=== PATIENT | male | born 1975 | race African-American/Black ===

== ENCOUNTER 2016-11-20 13:19 | Emergency (ER) | payer OTHER ==
[2016-11-20] MEDS ORDERED: Adacel (T-DAP) 0.5 ML VIAL ONE (14:09)
[2016-11-20] MEDS ORDERED: Sodium Chloride 0.9% 1,000 ML ONE ×2 (14:09→14:11)
--- NOTE | 2016-11-20 15:14 | ERRECORD ---
[facility] EMERGENCY RECORD HPI FOOT (14:34 JOHE) CHIEF COMPLAINT: Patient presents for evaluation of pain, to the right foot. HISTORIAN: History provided by patient, Patient reports 2 weeks of right foot pain, with a sore on the right foot over that time period. Reports swelling of the foot worse several days ago, with drainage of pus. Patient told nursing he had a razorblade wound on the foot two months ago, but did not report any injuries to me when asked. Reports subjective fever several days ago. No N&V, new numbness/tingling/weakness or other symptoms. Patient does report he drank two beers three hours ago. MECHANISM OF INJURY: Unknown mechanism. LOCATION: Symptoms are localized, most severe in the fifth metatarsal, Radiation is not present. QUALITY: Pain is sharp in nature, described as stabbing. SEVERITY: Maximum severity of symptoms severe, Currently symptoms are severe. TIME COURSE: Patient unable to describe onset of symptoms, There has been no change in the patient's symptoms over time, are constant. ASSOCIATED WITH: Associated with alcohol use, No associated ankle pain, No associated coolness to touch, No associated distal injury, No associated distal neuro complaint, No associated erythema, Associated with fever, No associated hip pain, No associated inability to ambulate, No associated inability to bear weight, No associated knee pain, Associated with open wounds, Associated with pain on walking, Pain is not out of proportion, No associated proximal injury, No associated tingling, No associated warmth, No associated weakness distal to injury, Denies any other complaints. EXACERBATED BY: Patient's condition exacerbated by walking, Patient's condition exacerbated by bearing weight. RELIEVED BY: Patient's condition relieved by rest. ROS (14:39 JOHE) CONSTITUTIONAL: Historian denies chills, denies fatigue, reports fever. Subjective fever of yes, Historian denies malaise. EYES: Historian denies eye pain, denies vision changes. ENT: Historian denies otalgia, denies rhinorrhea, denies sore throat. CARDIOVASCULAR: Historian denies chest pain, denies diaphoresis, denies syncope, denies palpitations. RESPIRATORY: Historian denies cough, denies shortness of breath. GI: Historian denies abdominal pain, denies nausea, denies vomiting. MUSCULOSKELETAL: Historian denies arthralgias, denies joint redness, denies joint stiffness, denies joint swelling, denies myalgias. SKIN: Historian denies rash, reports skin lesions. NEUROLOGIC: Historian denies dizziness, denies focal weakness, &a-1R&a+25V*p+0X*m2184H*c202B*c15G*c2P*p-0X&a-25V&a+1R Name: Dinesh Durham : 1975 [facility] MedRec: [id number] AcctNum: [id number] Prepared: WedNov 20, 2016 15:08 by Interface Page 1 of 4 pMD [facility] EMERGENCY RECORD denies gait changes, denies headache, denies paralysis, denies paresthesias, denies seizures. HEMO/LYMPHATIC: Historian denies abnormal blood clotting, denies petechiae. PSYCHIATRIC: Historian denies alcohol abuse, denies drug abuse, denies hallucinations, denies homicidal ideation, denies mood changes, denies suicidal ideation. NOTES: All systems reviewed, negative except as described above. PAST MEDICAL HISTORY (13:42 [facility]) MEDICAL HISTORY: Past medical history includes history of malignancy, primary site prostate, treated with chemotherapy, treated with radiation. MALE SURGICAL HISTORY: PROSTATE REMOVED OCT 2015 VERIFIED 03/28/16. PSYCHIATRIC HISTORY: No previous psychiatric history. SOCIAL HISTORY: Patient drinks every day, more than 5 drinks per day, Patient denies drug use, Patient currently uses tobacco, smokes cigarettes, daily, Patient has smoked for 30 years, Patient smokes 1 pack per day, Patient drinks socially, every week, Patient denies drug use, Patient currently uses tobacco, smokes cigarettes, daily, Patient smokes 1 pack per day. VERIFIED 03/28/16. KNOWN ALLERGIES No Known Drug Allergies CURRENT MEDICATIONS (13:42 [facility]) None VITAL SIGNS (13:39 [facility]) VITAL SIGNS: BP: 130/77, Pulse: 96, Resp: 16, Temp: 98.5 (Oral), Pain: 10, O2 sat: 95 on Room Air, Time: 11/20/2016 13:39. PHYSICAL EXAM CONSTITUTIONAL: Vital Signs Reviewed, Patient appears non toxic, Patient alert and oriented to person, place and time, Patient sleeping but arousable. Does have faint odor of alcohol in room. AAO X3. (14:42 JOHE) HEAD: Head exam normal, Head exam included findings of head atraumatic, normocephalic. (14:42 JOHE) EYES: Eye exam normal, Eye exam included findings of eyelids normal to inspection, Pupils equally round and reactive to light, Left pupil 2 mm in size, Right pupil 2 mm in size, Extraocular muscles intact, mild bilateral conjunctival injection. (14:42 JOHE) ENT: ENT exam normal, Pharynx exam normal, not injected, no swelling, symmetrical, Uvula exam normal, midline, no edema, Mouth exam normal, mucous membranes moist, no drooling, no lesions, no lacerations, no tongue elevation. (14:42 JOHE) &a-1R&a+25V*p+0X*l2171X*c202B*c15G*c2P*p-0X&a-25V&a+1R Name: Dinesh Durham : 1975 M40 MedRec: [id number] AcctNum: [id number] Prepared: WedNov 20, 2016 15:08 by Interface Page 2 of 4 pMD [facility] EMERGENCY RECORD NECK: Neck exam normal, Neck exam included findings of normal range of motion, Trachea midline, no abrasions, no contusions, no ecchymosis. (14:42 JOHE) RESPIRATORY CHEST: Respiratory and chest exam normal, Respiratory exam included findings of no respiratory distress, Breath sounds clear, No wheezing, No rales, No rhonchi, Breath sounds not absent, Breath sounds not diminished, CTAB. (14:42 JOHE) CARDIOVASCULAR: Cardiovascular assessment normal, Cardiovascular exam included findings of heart rate regular rate and rhythm, Heart sounds normal, Pedal pulses normal, RRR, no R/M/G. + pulses all ext., no edema. (14:42 JOHE) ABDOMEN MALE: Abdominal exam normal, Abdominal exam included findings of abdomen nontender, Bowel sounds normal, Soft, NT, ND, + BS. (14:42 JOHE) BACK: Back exam normal, Back exam included findings of normal inspection, range of motion normal. (14:42 JOHE) UPPER EXTREMITY: Upper extremity exam normal, Upper extremity exam included findings of inspection normal, Range of motion normal, Motor strength normal, Sensation intact, Radial pulse normal. (14:42 JOHE) LOWER EXTREMITY: Foot tendon function normal, Patient has a healing, approximately 1cm ulceration/wound on the dorsum of the right foot near the fifth MTP joint, with tenderness to palpation, but no erythema, warmth, swelling, or fluctuance. No purulent drainage. Patient has some maceration of the web space of the 4-5th toes, without erythema or drainage. There is no other tenderness or swelling of the foot or ankle (I do not see significant ankle swelling on my exam). Remainder BLE nontender with full and painless ROM. Sensation intact light touch BLE, cap refill < 2 sec, normal DP and PT pulses BLE. Normal gait in ED., Patient is able to walk at least 4 steps. (14:55 JOHE) NEURO: Neuro exam normal, Neuro exam findings include patient oriented to person, place and time, Gait normal, Cranial nerves intact, no focal motor deficits, no focal sensory deficits. (14:42 JOHE) SKIN: Skin exam included findings of skin warm, dry, and normal in color. (14:42 JOHE) RADIOLOGYINTERPRETATION (15:03 JOHE) LOWER EXTREMITIES: Foot films negative, on the right, no fracture, no dislocation, no foreign body, no bony lesion. FINE CRAFT ARTIST: Preliminary review of x-rays by, ED Physician, Radiologist. MEDICATION ADMINISTRATION SUMMARY Drug Name: Motrin, Dose Ordered: 600 mg, Route: Oral, Status: Ordered, Time: 14:11 11/20/2016, Drug Name: Normal Saline, Dose Ordered: 1000 mL, Route: IV Fluid Infusion, Status: Ordered, Time: 14:02 11/20/2016, &a-1R&a+25V*p+0X*[id number]*c202B*c15G*c2P*p-0X&a-25V&a+1R Name: Rosamond Dinesh Callie : 1975 M40 MedRec: [id number] AcctNum: [id number] Prepared: WedNov 20, 2016 15:08 by Interface Page 3 of 4 pMD [facility] EMERGENCY RECORD Drug Name: Adacel(Tdap Adolesn/Adult)(PF), Dose Ordered: 0.5 mL, Route: Intramuscular, Status: Given, Time: 14:17 11/20/2016, Detailed record available in Medication Service section. DOCTOR NOTES (15: [facility]) TEXT: Patient refuses labs and further evaluation. Discussed with patient that cannot rule out deeper infection given complaint of fever and drainage, and need labs, and further evaluation. Patient verbalized understanding of the risks of leaving, including or disability, and still wishes to leave. AMA form signed, and as patient awake, alert, and oriented, will d/c home with family member to monitor him. Discussed need to return to ED if he changes his mind or develops further symptoms, and need for outpatient f/u. DATA REVIEWED: Xray data reviewed. PROBLEM LIST No recorded problems DIAGNOSIS (15: [facility]) FINAL: PRIMARY: ulceration of right foot. PRESCRIPTION No recorded prescriptions DISPOSITION PATIENT: Disposition Type: Eloped, Disposition: Against Medical Advice, Disposition Transport: Designated Watch Assembly Instructor, Condition: Good. (15: [facility]) Patient left the department. (15:03 [facility]) Song: POP=MD Kym, Rod [facility]=LIZZIE Ferraro, Angelic &a-1R&a+25V*p+0X*[id number]*c202B*c15G*c2P*p-0X&a-25V&a+1R Name: Dinesh Durham : 1975 M40 MedRec: [id number] AcctNum: [id number] Prepared: WedNov 20, 2016 15:08 by Interface Page 4 of 4 pMD MTDD
--- NOTE | 2016-11-20 15:14 | RAD ---
THREE VIEWS OF THE RIGHT FOOT: Date: 11/20/16. COMPARISON: None. HISTORY: Open wound on the right foot, fever. FINDINGS: There is mild degenerative change at the first metatarsal phalangeal joint which includes joint spac e narrowing, subchondral sclerosis, and osteophyte formation. There is no displaced fracture or jacob dence of dislocation seen. No radiopaque foreign body or subcutaneous gas. IMPRESSION: No acute osseous abnormality. If there is clinical concern for osteomyelitis, MRI of the right foot suggested. POS: JOSSELINE
--- NOTE | 2016-11-20 15:17 | PICIS ---
[facility] EMERGENCY RECORD TRIAGE (13:40 [facility]) TRIAGE NOTES: Pt reports scraping on an open wound on his R foot with a razorblade 2 months ago, and says he thinks his foot may be infected now. Pt's ankle is swollen and pt is limping. Pt's speech is slurred and he smells of alcohol. (13:40 [facility]) PATIENT: NAME: Dinesh Durham, AGE: 40, GENDER: male, : Wed1975, TIME OF GREET: WedNov 20, 2016 13:19, PREFERRED LANGUAGE: Ukrainian, ETHNICITY: Not or , ECODE BILLING MAP: [facility], SSN: [id number], Zip Code: [address], KG WEIGHT: [phone] (est.), PHONE: , , , PERSON ID: [id number]. (13:40 [facility]) COMPLAINT: RIGHT FOOT PAIN. (13:40 [facility]) ADMISSION: URGENCY: 4 Non Urgent, ADMISSION SOURCE: Home, TRANSPORT: Walk-in, BED: ER -05. (13:40 [facility]) IMMUNIZATIONS: Flu vaccine not up to date, Tetanus not up to date. (13:42 [facility]) SIRS SCORING: Heart Rate 55-109 (0), Temp range 96.8-101.1 (0), respiratory rate 12-24 (0). (13:42 [facility]) TRIAGE SCREENING: Patient denies suicidal ideation, Patient denies presence of domestic violence. (13:42 [facility]) PROVIDERS: TRIAGE NURSE: Angelic Ferraro RN. (13:40 [facility]) VITAL SIGNS: BP 130/77, Pulse 96, Resp 16, Temp 98.5, (Oral), Pain 10, O2 Sat 95, on Room Air, Time 11/20/2016 13:39. (13:39 [facility]) KNOWN ALLERGIES No Known Drug Allergies CURRENT MEDICATIONS (13:42 [facility]) None VITAL SIGNS (13:39 [facility]) VITAL SIGNS: BP: 130/77, Pulse: 96, Resp: 16, Temp: 98.5 (Oral), Pain: 10, O2 sat: 95 on Room Air, Time: 11/20/2016 13:39. NURSING ASSESSMENT: EXTREMITY LOWER (13:43 [facility]) CONSTITUTIONAL: Complex assessment performed, Patient arrives ambulatory, Unsteady gait, History obtained from patient, Patient appears comfortable, Patient cooperative, Patient alert, Oriented to person, place and time, Skin warm, Skin dry, Skin normal in color, Pt reports R foot pain causing him to limp and not be able to bear weight on that side beginning a few days ago. Pt reports scraping at a foot wound with a razor blade 2 months ago and now believes his foot is infected. Wound has closed, no signs of current infection. PAIN: shooting pain, to the right foot, on a scale 0-10 patient rates pain as 10. LEFT LOWER EXTREMITY: Left lower extremity assessment findings include capillary refill less than 2 seconds, Skin color normal, Skin temperature warm, Distal sensation intact, Muscle tone normal, muscle &a-1R&a+25V*p+0X*x7500N*c202B*c15G*c2P*p-0X&a-25V&a+1R Name: Dinesh Durham : 1975 1 MedRec: [id number] AcctNum: [id number] Prepared: WedNov 20, 2016 15:15 by Interface Page 1 of 7 pMD [facility] EMERGENCY RECORD strength 5, no edema present, dorsalis pedis pulse is +3. RIGHT LOWER EXTREMITY: Right lower extremity assessment findings include capillary refill less than 2 seconds, Skin color normal, Skin temperature warm, Distal sensation intact, Muscle tone normal, muscle strength 5, no edema present, dorsalis pedis pulse is +3, Inspection findings include signs of infection, to R dorsal surface near fourth and fifth toes, signs of old wound which pt reports "scraping at with a razor.". SAFETY: Side rails up, Cart/Stretcher in lowest position, Call light within reach, Hospital ID band on. NURSING PROCEDURE: BEDSIDE RADIOLOGY (14:06 [facility]) BEDSIDE RADIOLOGY: Bedside radiology performed by [facility], Portable x-ray performed, of the right foot. NURSING PROCEDURE: NURSE NOTES NURSES NOTES: Notes: Pt refusing IV stick and medications; wants to leave AMA, but is unable to find a ride. Sister (emergency contact) works in town but is unable to pick pt up until closer to 1700. ERMD aware and has said we will continue to observe him for another hour and then he is free to be discharged AMA. Will continue to monitor. (14:42 [facility]) Notes: Pt's family member has come to pick pt up and signed his AMA form. Pt has expressed consent to leave with family member and ERMD aware. (15:02 [facility]) ORDER DETAILS Order Name: Alcohol, Status: Canceled, Time: 14:07 11/20/2016, User: POP, - Ordered for: MD Mejía John, - Entered by: MD Mejía John - WedNov 20, 2016 14:03, - Quantity: 1, Order Name: CBC with Differential, Status: Active, Time: 14:01 11/20/2016, User: POP, - Ordered for: MD Mejía John, - Entered by: MD Mejía John - WedNov 20, 2016 14:01, - Quantity: 1, Order Name: Comprehensive Metabolic Panel, Status: Active, Time: 14:01 11/20/2016, User: POP, - Ordered for: MD Mejía John, - Entered by: MD Mejía John - WedNov 20, 2016 14:01, - Quantity: 1, Order Name: Drug Screen, Urine, Status: Canceled, Time: 14:06 11/20/2016, User: POP, - Ordered for: MD Mejía John, - Entered by: MD Mejía John - WedNov 20, 2016 14:03, - Quantity: 1, Order Name: RBC Sedimentation Rate (ESR), Status: Active, Time: 14:01 11/20/2016, User: POP, &a-1R&a+25V*p+0X*b7723L*c202B*c15G*c2P*p-0X&a-25V&a+1R Name: Herminio Dinesh G : 1975 M40 MedRec: [id number] AcctNum: [id number] Prepared: WedNov 20, 2016 15:15 [address] Interface [address] [facility] EMERGENCY RECORD - Ordered for: MD Mejía John, - Entered by: MD Mejía John - WedNov 20, 2016 14:01, - Quantity: 1, Order Name: XR Foot Rt 3 View STANDARD, Status: Active, Time: 14:00 11/20/2016, User: POP, - Ordered for: MD Mejía John, - Entered by: MD Mejía John - WedNov 20, 2016 14:00, - Quantity: 1. MEDICATION ADMINISTRATION SUMMARY Drug Name: Motrin, Dose Ordered: 600 mg, Route: Oral, Status: Ordered, Time: 14:11 11/20/2016, Drug Name: Normal Saline, Dose Ordered: 1000 mL, Route: IV Fluid Infusion, Status: Ordered, Time: 14:02 11/20/2016, Drug Name: Adacel(Tdap Adolesn/Adult)(PF), Dose Ordered: 0.5 mL, Route: Intramuscular, Status: Given, Time: 14:17 11/20/2016, Detailed record available in Medication Service section. MEDICATION SERVICE Adacel(Tdap Adolesn/Adult)(PF): Order: Adacel(Tdap Adolesn/Adult)(PF) (diphth,pertuss(acell),tet vac/preservative free) - Dose: 0.5 mL : Intramuscular Schedule: Now Ordered by: Rod Mejía MD Entered by: Rod Mejía MD WedNov 20, 2016 14:03 , Acknowledged by: Angelic Ferraro RN WedNov 20, 2016 14:04 Documented as given by: Angelic Ferraro RN WedNov 20, 2016 14:17 Patient, Medication, Dose, Route and Time verified prior to administration. IM immunization, Amount given: 0.5 ml, Medication administered to right deltoid, Vaccination information sheet given to patient, Correct patient, time, route, dose and medication confirmed prior to administration, Patient advised of actions and side-effects prior to administration, Allergies confirmed and medications reviewed prior to administration, Patient tolerated procedure well, Administered by LIZZIE Atwood, Patient in position of comfort, Side rails up, Cart in lowest position, Call light in reach. Motrin: Order: Motrin (ibuprofen) - Dose: 600 mg : Oral Schedule: Now Ordered by: Rod Mejía MD Entered by: Rod Mejía MD WedNov 20, 2016 14:11 , Acknowledged by: Angelic Ferraro RN WedNov 20, 2016 14:49. Normal Saline: Order: Normal Saline (0.9 % sodium chloride) - Dose: 1000 mL : IV Fluid Infusion Schedule: Now Ordered by: Rod Mejía MD Entered by: Rod Mejía MD WedNov 20, 2016 14:02 , Acknowledged by: Angelic Ferraro RN WedNov 20, 2016 14:04. &a-1R&a+25V*p+0X*p4347R*c202B*c15G*c2P*p-0X&a-25V&a+1R Name: Dinesh Durham : 1975 M40 MedRec: [id number] AcctNum: [id number] Prepared: WedNov 20, 2016 15:15 by Interface Page 3 of 7 pMD [facility] EMERGENCY RECORD HPI FOOT (14:34 [facility]) CHIEF COMPLAINT: Patient presents for evaluation of pain, to the right foot. HISTORIAN: History provided by patient, Patient reports 2 weeks of right foot pain, with a sore on the right foot over that time period. Reports swelling of the foot worse several days ago, with drainage of pus. Patient told nursing he had a razorblade wound on the foot two months ago, but did not report any injuries to me when asked. Reports subjective fever several days ago. No N&V, new numbness/tingling/weakness or other symptoms. Patient does report he drank two beers three hours ago. MECHANISM OF INJURY: Unknown mechanism. LOCATION: Symptoms are localized, most severe in the fifth metatarsal, Radiation is not present. QUALITY: Pain is sharp in nature, described as stabbing. SEVERITY: Maximum severity of symptoms severe, Currently symptoms are severe. TIME COURSE: Patient unable to describe onset of symptoms, There has been no change in the patient's symptoms over time, are constant. ASSOCIATED WITH: Associated with alcohol use, No associated ankle pain, No associated coolness to touch, No associated distal injury, No associated distal neuro complaint, No associated erythema, Associated with fever, No associated hip pain, No associated inability to ambulate, No associated inability to bear weight, No associated knee pain, Associated with open wounds, Associated with pain on walking, Pain is not out of proportion, No associated proximal injury, No associated tingling, No associated warmth, No associated weakness distal to injury, Denies any other complaints. EXACERBATED BY: Patient's condition exacerbated by walking, Patient's condition exacerbated by bearing weight. RELIEVED BY: Patient's condition relieved by rest. ROS (14:39 [facility]) CONSTITUTIONAL: Historian denies chills, denies fatigue, reports fever. Subjective fever of yes, Historian denies malaise. EYES: Historian denies eye pain, denies vision changes. ENT: Historian denies otalgia, denies rhinorrhea, denies sore throat. CARDIOVASCULAR: Historian denies chest pain, denies diaphoresis, denies syncope, denies palpitations. RESPIRATORY: Historian denies cough, denies shortness of breath. GI: Historian denies abdominal pain, denies nausea, denies vomiting. MUSCULOSKELETAL: Historian denies arthralgias, denies joint redness, denies joint stiffness, denies joint swelling, denies myalgias. SKIN: Historian denies rash, reports skin lesions. &a-1R&a+25V*p+0X*x6631Z*c202B*c15G*c2P*p-0X&a-25V&a+1R Name: Dinesh Durham : 1975 M40 MedRec: [id number] AcctNum: [id number] Prepared: WedNov 20, 2016 15:15 by Interface Page 4 of 7 pMD [facility] EMERGENCY RECORD NEUROLOGIC: Historian denies dizziness, denies focal weakness, denies gait changes, denies headache, denies paralysis, denies paresthesias, denies seizures. HEMO/LYMPHATIC: Historian denies abnormal blood clotting, denies petechiae. PSYCHIATRIC: Historian denies alcohol abuse, denies drug abuse, denies hallucinations, denies homicidal ideation, denies mood changes, denies suicidal ideation. NOTES: All systems reviewed, negative except as described above. PAST MEDICAL HISTORY (13:42 [facility]) MEDICAL HISTORY: Past medical history includes history of malignancy, primary site prostate, treated with chemotherapy, treated with radiation. MALE SURGICAL HISTORY: PROSTATE REMOVED OCT 2015 VERIFIED 03/28/16. PSYCHIATRIC HISTORY: No previous psychiatric history. SOCIAL HISTORY: Patient drinks every day, more than 5 drinks per day, Patient denies drug use, Patient currently uses tobacco, smokes cigarettes, daily, Patient has smoked for 30 years, Patient smokes 1 pack per day, Patient drinks socially, every week, Patient denies drug use, Patient currently uses tobacco, smokes cigarettes, daily, Patient smokes 1 pack per day. VERIFIED 03/28/16. PHYSICAL EXAM CONSTITUTIONAL: Vital Signs Reviewed, Patient appears non toxic, Patient alert and oriented to person, place and time, Patient sleeping but arousable. Does have faint odor of alcohol in room. AAO X3. (14:42 [facility]) HEAD: Head exam normal, Head exam included findings of head atraumatic, normocephalic. (14:42 [facility]) EYES: Eye exam normal, Eye exam included findings of eyelids normal to inspection, Pupils equally round and reactive to light, Left pupil 2 mm in size, Right pupil 2 mm in size, Extraocular muscles intact, mild bilateral conjunctival injection. (14:42 [facility]) ENT: ENT exam normal, Pharynx exam normal, not injected, no swelling, symmetrical, Uvula exam normal, midline, no edema, Mouth exam normal, mucous membranes moist, no drooling, no lesions, no lacerations, no tongue elevation. (14:42 [facility]) NECK: Neck exam normal, Neck exam included findings of normal range of motion, Trachea midline, no abrasions, no contusions, no ecchymosis. (14:42 [facility]) RESPIRATORY CHEST: Respiratory and chest exam normal, Respiratory exam included findings of no respiratory distress, Breath sounds clear, No wheezing, No rales, No rhonchi, Breath sounds not absent, Breath sounds not diminished, CTAB. (14:42 [facility]) CARDIOVASCULAR: Cardiovascular assessment normal, Cardiovascular exam included findings of heart rate regular rate and rhythm, Heart &a-1R&a+25V*p+0X*x8754M*c202B*c15G*c2P*p-0X&a-25V&a+1R Name: Dinesh Durham : 1975 M40 MedRec: [id number] AcctNum: [id number] Prepared: WedNov 20, 2016 15:15 by Interface Page 5 of 7 pMD [facility] EMERGENCY RECORD sounds normal, Pedal pulses normal, RRR, no R/M/G. + pulses all ext., no edema. (14:42 [facility]) ABDOMEN MALE: Abdominal exam normal, Abdominal exam included findings of abdomen nontender, Bowel sounds normal, Soft, NT, ND, + BS. (14:42 [facility]) BACK: Back exam normal, Back exam included findings of normal inspection, range of motion normal. (14:42 [facility]) UPPER EXTREMITY: Upper extremity exam normal, Upper extremity exam included findings of inspection normal, Range of motion normal, Motor strength normal, Sensation intact, Radial pulse normal. (14:42 [facility]) LOWER EXTREMITY: Foot tendon function normal, Patient has a healing, approximately 1cm ulceration/wound on the dorsum of the right foot near the fifth MTP joint, with tenderness to palpation, but no erythema, warmth, swelling, or fluctuance. No purulent drainage. Patient has some maceration of the web space of the 4-5th toes, without erythema or drainage. There is no other tenderness or swelling of the foot or ankle (I do not see significant ankle swelling on my exam). Remainder BLE nontender with full and painless ROM. Sensation intact light touch BLE, cap refill < 2 sec, normal DP and PT pulses BLE. Normal gait in ED., Patient is able to walk at least 4 steps. (14:55 [facility]) NEURO: Neuro exam normal, Neuro exam findings include patient oriented to person, place and time, Gait normal, Cranial nerves intact, no focal motor deficits, no focal sensory deficits. (14:42 [facility]) SKIN: Skin exam included findings of skin warm, dry, and normal in color. (14:42 [facility]) EVENTS TRANSFER: Triage to Emergency Emergency Room -05. (WedNov 20, 2016 13:40 [facility]) Removed from Emergency Emergency Room -05. (15:03 [facility]) RADIOLOGYINTERPRETATION (15:03 [facility]) LOWER EXTREMITIES: Foot films negative, on the right, no fracture, no dislocation, no foreign body, no bony lesion. ESCALATOR SERVICE MECHANIC: Preliminary review of x-rays by, ED Physician, Radiologist. DOCTOR NOTES (15:01 [facility]) TEXT: Patient refuses labs and further evaluation. Discussed with patient that cannot rule out deeper infection given complaint of fever and drainage, and need labs, and further evaluation. Patient verbalized understanding of the risks of leaving, including or disability, and still wishes to leave. AMA form signed, and as patient awake, alert, and oriented, will d/c home with family member to monitor him. Discussed need to return to ED if he changes his mind or develops further symptoms, and need for outpatient f/u. &a-1R&a+25V*p+0X*r6293R*c202B*c15G*c2P*p-0X&a-25V&a+1R Name: Dinesh Durham : 1975 [facility] [place] MedRec: [id number] AcctNum: [id number] Prepared: WedNov 20, 2016 15:15 by Interface Page 6 of 7 pMD [facility] EMERGENCY RECORD DATA REVIEWED: Xray data reviewed. PROBLEM LIST No recorded problems DIAGNOSIS (15:01 ) FINAL: PRIMARY: ulceration of right foot. DISPOSITION PATIENT: Disposition Type: Eloped, Disposition: Against Medical Advice, Disposition Transport: [employer] [employer], Condition: Good. (15:01 ) Patient left the department. (15:03 [facility]) PRESCRIPTION No recorded prescriptions IMAGING TETANUS CONSENT: Image captured from scanner. (14:57 [facility]) AMA/LWBS: Image captured from scanner. (14:58 [facility]) *SUPPLY CHARGE SHEET: Image captured from scanner. (14:59 [facility]) ADMIN (15:03 [facility]) DIGITAL SIGNATURE: MD Mejía John. Song: [facility]=TRACY [place] [facility]=MD Mejía John [facility]=LIZZIE Ferraro, Angelic &a-1R&a+25V*p+0X*a5680S*c202B*c15G*c2P*p-0X&a-25V&a+1R Name: Dinesh Durham : 1975 [facility] [place] MedRec: [id number] AcctNum: [id number] Prepared: WedNov 20, 2016 15:15 by Interface Page 7 of 7 pMD [facility]
== END 2016-11-20 15:03 | disposition home or self-care (01) ==
LOC: NAV ERS 13:19
DX: L97.519 Non-pressure chronic ulcer of other part of right foot with unspecified severity (principal); F17.210 Nicotine dependence, cigarettes, uncomplicated
CPT/HCPCS: 90471; 90715; J7050

== ENCOUNTER 2017-02-12 23:07 | Emergency (ER) | payer OTHER ==
[2017-02-12] MEDS ORDERED: Lidocaine 1% w/Epinephrine 1:100K 20 ML VIAL ONE (23:45)
== END 2017-02-13 00:15 | disposition home or self-care (01) ==
LOC: NAV ERS 23:07
DX: L02.211 Cutaneous abscess of abdominal wall (principal); S63.92XA Sprain of unspecified part of left wrist and hand, initial encounter; F17.210 Nicotine dependence, cigarettes, uncomplicated; X58.XXXA Exposure to other specified factors, initial encounter
CPT/HCPCS: 10060; J2001

== ENCOUNTER 2017-02-16 21:14 | Emergency (ER) | payer OTHER | END 2017-02-16 22:05 | disposition home or self-care (01) | LOC: NAV ERS 21:14 | DX: S63.602A Unspecified sprain of left thumb, initial encounter (principal); F17.210 Nicotine dependence, cigarettes, uncomplicated; Z48.01 Encounter for change or removal of surgical wound dressing; W19.XXXA Unspecified fall, initial encounter | CPT/HCPCS: 99283 ==

== ENCOUNTER 2017-04-03 21:23 | Emergency (ER) | payer OTHER ==
[2017-04-03] MEDS ORDERED: Acetaminophen 500 MG TAB ONE (21:58)
[2017-04-03] MEDS ORDERED: Adacel (T-DAP) 0.5 ML VIAL ONE (21:58)
[2017-04-03] MEDS ORDERED: Cephalexin 500 MG CAP ONE (22:29)
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
[2017-04-03] MEDS ORDERED: Bacitracin Zinc 1 Packet ONE (23:30)
== END 2017-04-03 23:55 | disposition home or self-care (01) ==
LOC: NAV ERS 21:23
DX: S62.92XA Unspecified fracture of left hand, initial encounter for closed fracture (principal); S61.412A Laceration without foreign body of left hand, initial encounter; Z23 Encounter for immunization; F17.210 Nicotine dependence, cigarettes, uncomplicated; W26.0XXA Contact with knife, initial encounter
CPT/HCPCS: 29125; 90471; 90715

== ENCOUNTER 2017-04-08 13:27 | Emergency (ER) | payer OTHER ==
[2017-04-08] MEDS ORDERED: HYDROcodone/Acetaminophen 10/325 mg Tablet ONE (13:52)
== END 2017-04-08 13:56 | disposition home or self-care (01) ==
LOC: NAV ERS 13:27
DX: S61.412A Laceration without foreign body of left hand, initial encounter (principal); F17.210 Nicotine dependence, cigarettes, uncomplicated; Z79.899 Other long term (current) drug therapy; X99.1XXA Assault by knife, initial encounter
CPT/HCPCS: 99282

== ENCOUNTER 2018-02-17 12:07 | Emergency (ER) | payer OTHER ==
[2018-02-17] MEDS ORDERED: Lidocaine 1% w/Epinephrine 1:100K 30 ML VIAL ONE (12:40)
[2018-02-17] MEDS ORDERED: traMADol HCl 50 MG TAB ONE (13:04)
== END 2018-02-17 13:07 | disposition home or self-care (01) ==
LOC: NAV ERS 12:07
DX: L02.11 Cutaneous abscess of neck (principal); L72.9 Follicular cyst of the skin and subcutaneous tissue, unspecified; F17.210 Nicotine dependence, cigarettes, uncomplicated
CPT/HCPCS: 10060; 87070; 87077; 87186; 87205; J2001

== ENCOUNTER 2019-01-28 11:10 | Emergency (ER) | payer OTHER ==
[2019-01-28] MEDS ORDERED: Ibuprofen 200 MG TAB ONE (11:43)
--- NOTE | 2019-01-28 12:27 | RAD ---
RIGHT SHOULDER RADIOGRAPHS 3 VIEWS: DATE: 01/28/2019. PROVIDED CLINICAL HISTORY: I Right shoulder pain status post injury. FINDINGS: There is a nondisplaced comminuted fracture of the distal right clavicle distal to the expected locat ion of the coracoclavicular ligaments. The glenohumeral relationship appears normal. Subacromial sp yuri appears preserved. Visualized right lung field appears clear. IMPRESSION: Comminuted nondisplaced distal right clavicular fracture. Nonemergent orthopedic consultation is rec ommended. POS: JOSSELINE
== END 2019-01-28 12:10 | disposition home or self-care (01) ==
LOC: NAV ERS 11:10
DX: S42.034A Nondisplaced fracture of lateral end of right clavicle, initial encounter for closed fracture (principal); F17.210 Nicotine dependence, cigarettes, uncomplicated; W17.89XA Other fall from one level to another, initial encounter

== ENCOUNTER 2019-05-13 12:48 | Emergency (ER) | payer OTHER | END 2019-05-13 13:06 | disposition left against medical advice (07) | LOC: NAV ERS 12:48 | DX: M54.5 Low back pain (principal); F17.210 Nicotine dependence, cigarettes, uncomplicated | CPT/HCPCS: 99283 ==

== ENCOUNTER 2019-10-14 08:41 | Emergency (ER) | payer OTHER ==
--- NOTE | 2019-10-14 09:15 | RAD ---
EXAM: 4 views of the left knee HISTORY: Knee pain after fall COMPARISON: None FINDINGS: A moderate knee effusion is seen. There is no evidence of acute fracture or dislocation. Mo derate tricompartmental degenerative changes are seen. No soft tissue swelling is present. 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 IMPRESSION: Moderate knee effusion without acute osseous abnormality.
== END 2019-10-14 09:30 | disposition home or self-care (01) ==
LOC: NAV ERS 08:41
DX: M25.462 Effusion, left knee (principal); I10 Essential (primary) hypertension; F17.210 Nicotine dependence, cigarettes, uncomplicated; Z79.899 Other long term (current) drug therapy

== ENCOUNTER 2021-07-09 14:29 | Emergency (ER) | payer OTHER | END 2021-07-09 15:30 | disposition home or self-care (01) | LOC: NAV ERS 14:29 | DX: H60.62 Unspecified chronic otitis externa, left ear (principal); I10 Essential (primary) hypertension; F17.210 Nicotine dependence, cigarettes, uncomplicated; Z79.899 Other long term (current) drug therapy | CPT/HCPCS: 99282 ==

== ENCOUNTER 2021-07-17 11:01 | Emergency (ER) | payer OTHER | END 2021-07-17 11:51 | disposition home or self-care (01) | LOC: NAV ERS 11:01 | DX: H60.92 Unspecified otitis externa, left ear (principal); H70.92 Unspecified mastoiditis, left ear; I10 Essential (primary) hypertension; F17.210 Nicotine dependence, cigarettes, uncomplicated; Z79.899 Other long term (current) drug therapy | CPT/HCPCS: 99282 ==

== ENCOUNTER 2022-01-02 23:52 | Emergency (ER) | payer OTHER | END 2022-01-03 00:30 | disposition home or self-care (01) | LOC: NAV ERS 23:52 | DX: H60.91 Unspecified otitis externa, right ear (principal); I10 Essential (primary) hypertension; F17.210 Nicotine dependence, cigarettes, uncomplicated | CPT/HCPCS: 99282 ==

== ENCOUNTER 2022-03-17 12:58 | Emergency (ER) | payer OTHER | END 2022-03-17 13:44 | disposition left against medical advice (07) | LOC: NAV ERS 12:58 | DX: Z53.21 Procedure and treatment not carried out due to patient leaving prior to being seen by health care provider (principal) ==

== ENCOUNTER 2022-03-30 21:45 | Emergency (ER) | payer BC, OTHER ==
[2022-03-30] MEDS ORDERED: Sulfameth/Trimethoprim DS 800-160mg TAB ONE (22:44)
== END 2022-03-30 22:55 | disposition home or self-care (01) ==
LOC: NAV ERS 21:45
DX: L72.3 Sebaceous cyst (principal); H60.62 Unspecified chronic otitis externa, left ear; I10 Essential (primary) hypertension; F17.210 Nicotine dependence, cigarettes, uncomplicated; Z85.47 Personal history of malignant neoplasm of testis; Z79.899 Other long term (current) drug therapy
CPT/HCPCS: 99282

== ENCOUNTER 2022-04-12 15:51 | Emergency (ER) | payer OTHER ==
[2022-04-12] MEDS ORDERED: Ketorolac Tromethamine 60 MG/2 ML VIAL ONE (16:12)
[2022-04-12] MEDS ORDERED: methylPREDNISolone Sod Succ/PF 125 MG/2 ML VIAL ONE (17:17)
== END 2022-04-12 17:40 | disposition home or self-care (01) ==
LOC: NAV ERS 15:51
DX: M51.86 Other intervertebral disc disorders, lumbar region (principal); C61 Malignant neoplasm of prostate; C79.51 Secondary malignant neoplasm of bone; I10 Essential (primary) hypertension; F17.210 Nicotine dependence, cigarettes, uncomplicated; Z79.899 Other long term (current) drug therapy
CPT/HCPCS: 72131; 96372; J1885; J2930

== ENCOUNTER 2022-05-30 15:23 | Emergency (ER) | payer OTHER | END 2022-05-30 16:05 | disposition left against medical advice (07) | LOC: NAV ERS 15:23 | DX: Z53.21 Procedure and treatment not carried out due to patient leaving prior to being seen by health care provider (principal) ==

== ENCOUNTER 2022-08-26 17:37 | Emergency (ER) | payer OTHER | END 2022-08-26 18:13 | disposition home or self-care (01) | LOC: NAV ERS 17:37 | DX: H93.8X2 Other specified disorders of left ear (principal); H91.93 Unspecified hearing loss, bilateral; I10 Essential (primary) hypertension; F17.210 Nicotine dependence, cigarettes, uncomplicated; Z79.899 Other long term (current) drug therapy | CPT/HCPCS: 99282 ==

== ENCOUNTER 2022-12-28 17:44 | Emergency (ER) | payer OTHER ==
[2022-12-28] MEDS ORDERED: Ondansetron PF 4 MG/2 ML Vial ONE (18:38)
[2022-12-28] MEDS ORDERED: Pantoprazole 40 MG VIAL ONE (18:38)
[2022-12-28] MEDS ORDERED: Sodium Chloride 0.9% 1,000 ML ONE (18:38)
[2022-12-28 18:49] LABS: Chloride 102 mmol/L (98-107); Potassium 3.2 mmol/L (3.5-5.1); Sodium 136 mmol/L (136-145)
[2022-12-28 18:52] LABS: #Eosinphils 0.1 thou/uL (0.0-0.7); #Lymphocytes 1.4 thou/uL (1.20-3.40); #Monocytes 0.7 thou/uL (0.11-0.59); #Neutrophils 5.9 thou/uL (1.40-6.50); %Basophils 0.6 % (0.0-1.0); %Eosinophils 0.7 % (0.0-10.0); %Monocytes 8.7 % (0.0-10.0); Hemoglobin 11.1 g/dL (14.0-18.0); Mean Corpuscular HGB CONC 30.4 g/dL (32.0-36.0); Mean Corpuscular Hemoglobin 27.3 pg (27.0-31.0); Mean Corpuscular Volume 89.9 fl (78.0-98.0); Mean Platelet Volume 6.1 fL (7.4-10.4); Platelet Count 312 10x3/uL (130-400); RBC Distribution Width 33.7 % (11.5-14.5); Red Blood Cell (RBC) Count 4.05 mill/uL (4.70-6.10); White Blood Cell (WBC) Count 8.1 10x3/uL (4.8-10.8)
[2022-12-28 19:23] LABS: ALT (SGPT) 9 U/L (8-55); AST (SGOT) 16 U/L (5-34); Albumin 3.7 g/dL (3.5-5.0); Alkaline Phosphatase 72 U/L (40-110); Anion Gap 15 mmol/L (10-20); BUN (Urea Nitrogen) 9 mg/dL (8.9-20.6); Bilirubin, Total 0.4 mg/dL (0.2-1.2); Calc. Creatinine Clearance 0 mL/min (70-130); Calcium 9.1 mg/dL (7.8-10.44); Carbon Dioxide 23 mmol/L (22-29); Estimated GFR 107; Globulin 3.1 g/dL (2.4-3.5); Glucose 102 mg/dL (70-105); Lipase 27 U/L (8-78); Protein, Total 6.8 g/dL (6.0-8.3)
[2022-12-28] MEDS ORDERED: Lidocaine Viscous Sol 2% 15 ml UD Cup ONE (19:29)
[2022-12-28] MEDS ORDERED: Mag-Al Plus 1200 MG/1200 MG/120 MG/30 ML UDCUP ONE (19:29)
[2022-12-28] MEDS ORDERED: Fentanyl 100 MCG/2 ML VIAL ONE (20:18)
== END 2022-12-28 21:00 | disposition home or self-care (01) ==
LOC: NAV ERS 17:44
DX: R11.2 Nausea with vomiting, unspecified (principal); R10.12 Left upper quadrant pain; I10 Essential (primary) hypertension; F17.210 Nicotine dependence, cigarettes, uncomplicated; Z85.46 Personal history of malignant neoplasm of prostate; Z85.47 Personal history of malignant neoplasm of testis; Z79.899 Other long term (current) drug therapy
CPT/HCPCS: 36415; 71045; 80053; 83690; 84484; 85025; 93005; 96361; 96374; 96375; C9113; J2405; J3010; J7050

== ENCOUNTER 2023-01-29 13:54 | Emergency (ER) | payer OTHER ==
[2023-01-29] MEDS ORDERED: Lidocaine 1% (PF) 30 ML VIAL ONE (14:28)
== END 2023-01-29 15:20 | disposition home or self-care (01) ==
LOC: NAV ERS 13:54
DX: L02.31 Cutaneous abscess of buttock (principal); I10 Essential (primary) hypertension; F17.210 Nicotine dependence, cigarettes, uncomplicated
CPT/HCPCS: 10060; 36416; J2001

== ENCOUNTER 2023-02-02 13:36 | Emergency (ER) | payer OTHER | END 2023-02-02 14:26 | disposition home or self-care (01) | LOC: NAV ERS 13:36 | DX: L02.31 Cutaneous abscess of buttock (principal); R00.0 Tachycardia, unspecified; I10 Essential (primary) hypertension | CPT/HCPCS: 99284 ==

== ENCOUNTER 2023-02-03 14:51 | Emergency (ER) | payer OTHER | END 2023-02-03 15:10 | disposition home or self-care (01) | LOC: NAV ERS 14:51 | DX: Z48.00 Encounter for change or removal of nonsurgical wound dressing (principal); F17.210 Nicotine dependence, cigarettes, uncomplicated | CPT/HCPCS: 99282 ==

== ENCOUNTER 2023-02-21 17:59 | Emergency (ER) | payer OTHER ==
[~2023-02-21 17:59] MED LIST: Iopamidol 370 76% 100 ML VIAL ONE
[2023-02-21 18:49] LABS: INR-International Normal Ratio 1.3
[2023-02-21 18:50] LABS: PTT 52.3 sec (22.9-36.1)
[2023-02-21 18:54] LABS: Hemoglobin 11.9 g/dL (14.0-18.0); Mean Corpuscular Hemoglobin 30.4 pg (27.0-31.0); Mean Platelet Volume 5.9 fL (7.4-10.4); Platelet Count 316 10x3/uL (130-400); RBC Distribution Width 18.9 % (11.5-14.5)
[2023-02-21 18:55] LABS: Manual Diff?? YES
[2023-02-21 18:56] LABS: MDiff Complete? YES
[2023-02-21 18:57] LABS: ALT (SGPT) 22 U/L (8-55); AST (SGOT) 30 U/L (5-34); Albumin 3.6 g/dL (3.5-5.0); Alcohol 126 mg/dL (Less than 10); Alkaline Phosphatase 75 U/L (40-110); Anion Gap 19 mmol/L (10-20); BUN (Urea Nitrogen) 5 mg/dL (8.9-20.6); Bilirubin, Total 0.3 mg/dL (0.2-1.2); Calc. Creatinine Clearance 0 mL/min (70-130); Calcium 8.6 mg/dL (7.8-10.44); Carbon Dioxide 18 mmol/L (22-29); Chloride 104 mmol/L (98-107); Estimated GFR 113; Globulin 3.3 g/dL (2.4-3.5); Glucose 131 mg/dL (70-105); Potassium 3.7 mmol/L (3.5-5.1); Protein, Total 6.9 g/dL (6.0-8.3); Sodium 137 mmol/L (136-145); White Blood Cell (WBC) Count 2.4 10x3/uL (4.8-10.8)
[2023-02-21 19:01] LABS: Anisocytosis SLIGHT = 6-15 cells (100X) (0-5/hpf); Band 5 % (5-11); Lymphocytes 12 % (21-51); Monocytes 4 % (0-10); Neutrophil 77 % (42-75); Poikilocytosis SLIGHT = 6-15 cells (100X) (0-5/hpf); Reactive Lymphocytes 2 % (0-10)
[2023-02-21 19:02] LABS: Burr Cells SLIGHT = 2-5 cells (100X) (0-1/hpf); Elliptocytes SLIGHT = 2-5 cells (100X) (0-1/hpf); Target Cells SLIGHT = 2-5 cells (100X) (0-1/hpf)
[2023-02-21 19:03] LABS: Platelet Morphology Comment Appears Adequate
[2023-02-21] MEDS ORDERED: Sodium Chloride 0.9% 1,000 ML ONE (19:59)
[2023-02-21] MEDS ORDERED: Aspirin 325 MG TAB ONE (19:59)
[2023-02-21 20:49] LABS: Bilirubin Negative (Negative); Blood, Urine Small (Negative); Clarity Clear (Clear); Glucose, Urine (Dipstick) Negative (Negative); Ketone, Urine Negative (Negative); Leukocyte Negative (Negative); Nitrite Positive (Negative); Protein, Urine (Dipstick) Trace mg/dL (Neg-Trace); Urobilinogen 0.2 mg/dL (Less than 2)
[2023-02-21 20:50] LABS: Specific Gravity, Urine 1.029 (1.002-1.036)
[2023-02-21 20:55] LABS: Bacteria/HPF 2+ HPF (None Seen); Squamous Epithelial 0-3 HPF (0-3); WBC/HPF 0-3 HPF (0-3)
[2023-02-21 21:00] LABS: Cocaine Metabolite Screen Not Detected (NotDetected); Methamphetamine Not Detected (NotDetected); Opiate Screen Not Detected (NotDetected); Phencyclidine (PCP) Detected (NotDetected); THC/Cannabinoid Screen Not Detected (NotDetected)
[2023-02-21 21:01] LABS: Amphetamine Not Detected (NotDetected); Barbiturates Screen Not Detected (NotDetected); Benzodiazepine Screen Not Detected (NotDetected); Methadone Not Detected (NotDetected); Oxycodone Screen Not Detected (NotDetected); Tricyclic Screen Not Detected (NotDetected)
[2023-02-21] MEDS ORDERED: Cephalexin 250 MG CAP ONE (21:11)
== END 2023-02-21 22:05 | disposition short-term general hospital (02) ==
LOC: NAV ERS 17:59
DX: F10.229 Alcohol dependence with intoxication, unspecified (principal); R29.705 NIHSS score 5; I10 Essential (primary) hypertension; F17.210 Nicotine dependence, cigarettes, uncomplicated; Y90.6 Blood alcohol level of 120-199 mg/100 ml
CPT/HCPCS: 36415; 70450; 70496; 70498; 71045; 80053; 80306; 80307; 81003; 81015; 84443; 84484; 85025; 85610; 85730; 93005; J7050; Q9967

== ENCOUNTER 2023-04-26 16:27 | Emergency (ER) | payer OTHER ==
[2023-04-26] MEDS ORDERED: Piperacillin/Tazobactam 4.5 GM VIAL ONE (17:09)
[2023-04-26] MEDS ORDERED: Ondansetron PF 4 MG/2 ML Vial ONE (17:09)
[2023-04-26] MEDS ORDERED: Sodium Chloride 0.9% 1,000 ML ONE (17:09)
[2023-04-26] MEDS ORDERED: HYDROmorphone 0.5 MG/0.5 ML SYRINGE ONE ×2 (17:09→19:07)
[2023-04-26] MEDS ORDERED: Sodium Chloride 0.9% 100 ML ONE (17:11)
[2023-04-26 17:19] LABS: ALT (SGPT) Less than 7 U/L (8-55); AST (SGOT) 11 U/L (5-34); Albumin 3.3 g/dL (3.5-5.0); Alkaline Phosphatase 70 U/L (40-110); Anion Gap 17 mmol/L (10-20); BUN (Urea Nitrogen) 7 mg/dL (8.9-20.6); Bilirubin, Total 0.4 mg/dL (0.2-1.2); Calc. Creatinine Clearance 0 mL/min (70-130); Calcium 9.3 mg/dL (7.8-10.44); Carbon Dioxide 22 mmol/L (22-29); Chloride 105 mmol/L (98-107); Estimated GFR 110; Glucose 128 mg/dL (70-105); Potassium 3.5 mmol/L (3.5-5.1); Protein, Total 7.3 g/dL (6.0-8.3); Sodium 140 mmol/L (136-145)
[2023-04-26 17:32] LABS: #Basophils 0.1 thou/uL (0.0-0.2); #Eosinphils 0.1 thou/uL (0.0-0.7); #Lymphocytes 1.9 thou/uL (1.20-3.40); #Monocytes 1.1 thou/uL (0.11-0.59); #Neutrophils 12.3 thou/uL (1.40-6.50); %Basophils 0.7 % (0.0-1.0); %Eosinophils 0.3 % (0.0-10.0); %Lymphocytes 12.3 % (21.0-51.0); %Monocytes 7.4 % (0.0-10.0); %Neutrophils 79.4 % (42.0-75.0); Hemoglobin 9.5 g/dL (14.0-18.0); Mean Corpuscular HGB CONC 31.4 g/dL (32.0-36.0); Mean Corpuscular Hemoglobin 28.6 pg (27.0-31.0); Mean Corpuscular Volume 90.9 fl (78.0-98.0); Mean Platelet Volume 4.9 fL (7.4-10.4); Platelet Count 689 10x3/uL (130-400); RBC Distribution Width 15.9 % (11.5-14.5); Red Blood Cell (RBC) Count 3.34 mill/uL (4.70-6.10); White Blood Cell (WBC) Count 15.5 10x3/uL (4.8-10.8)
[2023-04-26 17:35] LABS: Alcohol Less than 10.0 mg/dL (Less than 10)
[2023-04-26 17:38] LABS: Base Excess-Venous 1.1 mmol/L (-2.0 to 3.0); Bicarbonate (HCO3v) 25.7 mmol/L (22.0-28.0); Calcium, Ionized 1.17 mmol/L (1.15-1.33); Chloride 106 mmol/L (98-107); Hemoglobin - Calc 10.3 g/dL (14.0-18.0); Potassium 3.4 mmol/L (3.5-5.1); Sodium 139 mmol/L (138-145); T. Carbon Dioxide 26.9 mmol/L (22.0-28.0); vO2 Saturation-calc 83.4 % (60.0-85.0)
[2023-04-26] MEDS ORDERED: fentaNYL 50 mcg/mL 1 mL Vial ONE ×2 (19:46→20:44)
[2023-04-26 19:51] LABS: Bilirubin Negative (Negative); Blood, Urine Negative (Negative); Clarity Hazy (Clear); Glucose, Urine (Dipstick) Negative (Negative); Ketone, Urine Negative (Negative); Leukocyte Negative (Negative); Nitrite Negative (Negative); Protein, Urine (Dipstick) 100 mg/dL (Neg-Trace); Specific Gravity, Urine 1.015 (1.005-1.030); Urobilinogen 0.2 mg/dL (Less than 2); pH, Urine 5.5 (5.0-9.0)
[2023-04-26 19:58] LABS: Squamous Epithelial 0-3 HPF (0-3); WBC/HPF 0-3 HPF (0-3)
[2023-04-26 19:59] LABS: Urine Culture Reflex Yes Yes
[2023-04-26 20:17] LABS: SARS-CoV-2 NAA Rapid Test Not Detected (NotDetected)
[2023-04-26 20:50] LABS: Amphetamine Not Detected (NotDetected); Barbiturates Screen Not Detected (NotDetected); Benzodiazepine Screen Not Detected (NotDetected); Cocaine Metabolite Screen Detected (NotDetected); Methadone Not Detected (NotDetected); Methamphetamine Not Detected (NotDetected); Opiate Screen Detected (NotDetected); Oxycodone Screen Not Detected (NotDetected); Phencyclidine (PCP) Detected (NotDetected); THC/Cannabinoid Screen Not Detected (NotDetected); Tricyclic Screen Not Detected (NotDetected)
[2023-04-27] MEDS ORDERED: Piperacillin/Tazobactam 4.5 GM VIAL ONE ×2 (03:01→09:17)
[2023-04-27] MEDS ORDERED: Sodium Chloride 0.9% 100 ML ONE ×2 (03:01→09:17)
[2023-04-27] MEDS ORDERED: Dextrose 5 %-0.45 % NaCl 1,000 ML ONE (10:34)
[2023-04-27] MEDS ORDERED: fentaNYL 50 mcg/mL 1 mL Vial ONE (10:34)
== END 2023-04-27 15:20 | disposition short-term general hospital (02) ==
LOC: NAV ERS 16:27
DX: F14.10 Cocaine abuse, uncomplicated (principal); F16.10 Hallucinogen abuse, uncomplicated; R18.8 Other ascites; K85.90 Acute pancreatitis without necrosis or infection, unspecified; R65.10 Systemic inflammatory response syndrome (SIRS) of non-infectious origin without acute organ dysfunction; F17.210 Nicotine dependence, cigarettes, uncomplicated; K21.9 Gastro-esophageal reflux disease without esophagitis; I10 Essential (primary) hypertension; Z20.822 Contact with and (suspected) exposure to COVID-19; Z85.46 Personal history of malignant neoplasm of prostate
CPT/HCPCS: 71045; 74177; 80053; 80306; 80307; 81001; 82330; 82803; 83605; 83690; 85025; 87040; 87086; 96365; 96366; 96375; 96376; J1170; J2405; J2543; J3010; J3490; J7042; J7050; Q9967; U0002

== ENCOUNTER 2023-06-18 10:03 | Emergency (ER) | payer MEDICAID, OTHER ==
[2023-06-18] MEDS ORDERED: Lidocaine 1% (PF) 30 ML VIAL ONE (10:53)
== END 2023-06-18 11:48 | disposition home or self-care (01) ==
LOC: NAV ERS 10:03
DX: L02.31 Cutaneous abscess of buttock (principal); K21.9 Gastro-esophageal reflux disease without esophagitis; I10 Essential (primary) hypertension; F17.210 Nicotine dependence, cigarettes, uncomplicated
CPT/HCPCS: 10060; 87070; 87205; J2001

== ENCOUNTER 2023-06-20 10:09 | Emergency (ER) | payer MEDICAID, OTHER ==
[2023-06-20] MEDS ORDERED: Ketorolac Tromethamine 30 MG/ML VIAL ONE (10:23)
[2023-06-20] MEDS ORDERED: Lidocaine 1% (PF) 30 ML VIAL ONE (10:23)
[2023-06-20] MEDS ORDERED: Bupivacaine 0.5% 10 ML VIAL ONE (10:24)
== END 2023-06-20 10:54 | disposition home or self-care (01) ==
LOC: NAV ERS 10:09
DX: Z48.00 Encounter for change or removal of nonsurgical wound dressing (principal); K21.9 Gastro-esophageal reflux disease without esophagitis
CPT/HCPCS: 99282; J1885; J2001; J3490

== ENCOUNTER 2023-09-07 07:39 | Emergency (ER) | payer OTHER ==
[2023-09-07] MEDS ORDERED: Morphine 4 MG/ML VIAL ONE (08:28)
[2023-09-07 08:36] LABS: Anion Gap 15 mmol/L (10-20); BUN (Urea Nitrogen) 11 mg/dL (8.9-20.6); Calc. Creatinine Clearance 0 mL/min (70-130); Calcium 9.3 mg/dL (7.8-10.44); Carbon Dioxide 22 mmol/L (22-29); Chloride 104 mmol/L (98-107); Estimated GFR 76; Glucose 101 mg/dL (70-105); Sodium 137 mmol/L (136-145)
[2023-09-07 08:46] LABS: #Basophils 0.1 thou/uL (0.0-0.2); #Lymphocytes 1.1 thou/uL (1.20-3.40); #Monocytes 0.7 thou/uL (0.11-0.59); #Neutrophils 5.9 thou/uL (1.40-6.50); %Basophils 1.2 % (0.0-1.0); %Eosinophils 0.1 % (0.0-10.0); %Monocytes 9.5 % (0.0-10.0); %Neutrophils 75.3 % (42.0-75.0); Hematocrit 33.7 % (42.0-52.0); Hemoglobin 10.4 g/dL (14.0-18.0); Mean Corpuscular HGB CONC 30.9 g/dL (32.0-36.0); Mean Corpuscular Hemoglobin 24.4 pg (27.0-31.0); Mean Corpuscular Volume 79.1 fl (78.0-98.0); Platelet Count 642 10x3/uL (130-400); RBC Distribution Width 22.3 % (11.5-14.5); Red Blood Cell (RBC) Count 4.26 mill/uL (4.70-6.10); White Blood Cell (WBC) Count 7.8 10x3/uL (4.8-10.8)
[2023-09-07] MEDS ORDERED: Iopamidol 370 76% 100 ML VIAL ONE (09:00)
[2023-09-07] MEDS ORDERED: Lidocaine 1% (PF) 30 ML VIAL ONE (09:50)
[2023-09-07] MEDS ORDERED: Morphine 2 MG/ML VIAL ONE (09:58)
== END 2023-09-07 10:58 | disposition home or self-care (01) ==
LOC: NAV ERS 07:39
DX: L02.31 Cutaneous abscess of buttock (principal); C61 Malignant neoplasm of prostate; I10 Essential (primary) hypertension; F17.210 Nicotine dependence, cigarettes, uncomplicated; Z79.899 Other long term (current) drug therapy
CPT/HCPCS: 10060; 72193; 80048; 85025; 96374; 96376; J2001; J2270; J2272; Q9967

== ENCOUNTER 2023-12-31 22:29 | Emergency (ER) | payer OTHER ==
[2023-12-31] MEDS ORDERED: Ondansetron PF 4 MG/2 ML Vial ONE (22:45)
[2023-12-31] MEDS ORDERED: Ketorolac Tromethamine 30 MG (1 mL) VIAL ONE (22:45)
[2023-12-31] MEDS ORDERED: Sodium Chloride 0.9% 1,000 ML ONE ×2 (22:45→23:45)
[2023-12-31 22:55] LABS: #Lymphocytes 2.2 thou/uL (1.20-3.40); #Monocytes 0.9 thou/uL (0.11-0.59); #Neutrophils 8.1 thou/uL (1.40-6.50); %Basophils 0.3 % (0.0-1.0); %Eosinophils 0.4 % (0.0-10.0); %Lymphocytes 19.8 % (21.0-51.0); %Monocytes 7.7 % (0.0-10.0); %Neutrophils 71.8 % (42.0-75.0); Hematocrit 36.8 % (42.0-52.0); Mean Corpuscular HGB CONC 32.5 g/dL (32.0-36.0); Mean Corpuscular Hemoglobin 28.5 pg (27.0-31.0); Mean Corpuscular Volume 87.9 fl (78.0-98.0); Mean Platelet Volume 5.3 fL (7.4-10.4); Platelet Count 517 10x3/uL (130-400); RBC Distribution Width 17.4 % (11.5-14.5); Red Blood Cell (RBC) Count 4.19 mill/uL (4.70-6.10); White Blood Cell (WBC) Count 11.3 10x3/uL (4.8-10.8)
[2023-12-31 22:59] LABS: Bilirubin Negative (Negative); Blood, Urine Moderate (Negative); Clarity Slightly Cloudy (Clear); Glucose, Urine (Dipstick) Negative (Negative); Ketone, Urine Negative (Negative); Leukocyte Small (Negative); Nitrite Positive (Negative); Protein, Urine (Dipstick) 100 mg/dL (Neg-Trace); Specific Gravity, Urine 1.025 (1.005-1.030); Urobilinogen 0.2 mg/dL (Less than 2); pH, Urine 5.5 (5.0-9.0)
[2023-12-31 23:01] LABS: Bacteria/HPF 2+ HPF (None Seen); CAUTI Indications for Culture Pelvic or flank pain; Squamous Epithelial 0-3 HPF (0-3); WBC/HPF Greater than 50 HPF (0-3)
[2023-12-31 23:02] LABS: Urine Culture Reflex Yes Yes
[2023-12-31 23:14] LABS: ALT (SGPT) 41 U/L (8-55); AST (SGOT) 30 U/L (5-34); Albumin 3.8 g/dL (3.5-5.0); Alkaline Phosphatase 193 U/L (40-110); Anion Gap 18 mmol/L (10-20); BUN (Urea Nitrogen) 11 mg/dL (8.9-20.6); Bilirubin, Total 0.2 mg/dL (0.2-1.2); Calc. Creatinine Clearance 0 mL/min (70-130); Calcium 9.2 mg/dL (7.8-10.44); Carbon Dioxide 17 mmol/L (22-29); Chloride 99 mmol/L (98-107); Estimated GFR 105; Globulin 4.2 g/dL (2.4-3.5); Glucose 94 mg/dL (70-105); Lipase 201 U/L (8-78); Potassium 3.8 mmol/L (3.5-5.1); Sodium 130 mmol/L (136-145)
[2023-12-31] MEDS ORDERED: Sodium Chloride 0.9% 100 ML ONE (23:37)
[2023-12-31] MEDS ORDERED: cefTRIAXone (ROCEPHIN) 1 GM VIAL ONE (23:37)
[2023-12-31] MEDS ORDERED: fentaNYL 50 mcg/mL 1 mL Vial ONE (23:45)
[2024-01-01 01:25] LABS: Lactic Acid 1.5 mmol/L (0.5-2.2)
== END 2024-01-01 01:42 | disposition home or self-care (01) ==
LOC: NAV ERS 22:29
DX: N39.0 Urinary tract infection, site not specified (principal); R11.2 Nausea with vomiting, unspecified; I10 Essential (primary) hypertension; F17.210 Nicotine dependence, cigarettes, uncomplicated
CPT/HCPCS: 74176; 80053; 81001; 83605; 83690; 85025; 87077; 87086; 87186; 96361; 96365; 96375; J0696; J1885; J2405; J3010; J3490; J7050

== ENCOUNTER 2025-06-29 22:29 | Emergency (ER) | payer MEDICAID ==
[2025-06-29] MEDS ORDERED: Sulfameth/Trimethoprim DS 800-160mg TAB ONE (23:12)
[2025-06-29] MEDS ORDERED: Naproxen 500 MG TAB ONE (23:12)
== END 2025-06-29 23:15 | disposition home or self-care (01) ==
LOC: NAV ERS 22:29
DX: L72.3 Sebaceous cyst (principal); L08.9 Local infection of the skin and subcutaneous tissue, unspecified; I10 Essential (primary) hypertension; F17.210 Nicotine dependence, cigarettes, uncomplicated
CPT/HCPCS: 10060; 87070; 87205